=== PATIENT | male | born 1960 | race Caucasian/White ===

== ENCOUNTER 2021-05-13 01:57 | Emergency (ER) | payer MEDICAID ==
[~2021-05-13] VITALS: Ht 167.6 cm; Wt 90.0 kg
[2021-05-13] MEDS ORDERED: FOLIC ACID 1 MG, THIAMINE HCL 100 MG, MVI, ADULT NO.1 10 ML in DEXTROSE 5% WATER 1,000 ML IV ONE ×4 (03:15)
[2021-05-13 03:39] LABS: BASOPHILS % 1.1 % (0.0-2.0); EOSINOPHILS % 1.3 % (0.0-5.0); HEMATOCRIT. 40.6 % (42.0-52.0); HEMOGLOBIN. 14.1 g/dL (14.0-18.0); LYMPHOCYTES % 23.3 % (20.0-50.0); MEAN CORPUSCULAR HEMOGLOBIN 35.9 pg (28.0-32.0); MEAN CORPUSCULAR VOLUME 103.4 fL (80.0-94.0); MEAN PLATELET VOLUME 9.1 fl (7.4-10.4); MONOCYTES % 9.9 % (2.0-8.0); NEUTROPHILS % 64.4 % (40.0-76.0); PLATELET 93 x1000/uL (130-400); RED BLOOD CELL COUNT 3.93 mill/uL (4.7-6.1)
[2021-05-13 03:57] LABS: CHLORIDE 103 mEq/L (98-107)
[2021-05-13] MEDS ORDERED: ACETAMINOPHEN 325MG TABLET PO ONE (04:00)
[2021-05-13 04:01] LABS: ETHANOL BLOOD 266 mg/dL
[2021-05-13] MEDS ORDERED: KETOROLAC 15MG/ML VIAL IV ONE (05:15)
[2021-05-13 07:20] VITALS: BP 98/62
== END 2021-05-13 08:07 | disposition home or self-care (01) ==
LOC: ER 01:57
DX: F10.229 Alcohol dependence with intoxication, unspecified (principal); R60.0 Localized edema; G89.29 Other chronic pain; M25.511 Pain in right shoulder; I10 Essential (primary) hypertension; F17.210 Nicotine dependence, cigarettes, uncomplicated; Y90.8 Blood alcohol level of 240 mg/100 ml or more
CPT/HCPCS: 36415; 73030; 80053; 80320; 85025; 93970; 96365; 96375; 99285; J1885; J3411; J3490; J7070; Z7610; G0480